=== PATIENT | female | born 1990 | race Native Hawaiian/Other Pacific Islander ===

== ENCOUNTER 2022-03-03 21:35 | Emergency (ER) | payer BC ==
[~2022-03-03] VITALS: Ht 162.6 cm; Wt 90.7 kg
[2022-03-03 21:45] VITALS: BP 155/88; TEMP 98.6
== END 2022-03-03 23:50 | disposition home or self-care (01) ==
LOC: ED 21:35
DX: Z34.80 Encounter for supervision of other normal pregnancy, unspecified trimester (principal)
CPT/HCPCS: 36415; 81002; 81025; 84702; 87210; 87590; 99283

== ENCOUNTER 2022-03-25 10:20 | Emergency (ER) | payer BC, OTHER ==
[~2022-03-25] VITALS: Ht 162.6 cm; Wt 90.7 kg
[2022-03-25 10:28] VITALS: TEMP 98.4
[2022-03-25 11:25] LABS: PLATELET COUNT 281 K/uL (152-353)
[2022-03-25 11:26] LABS: POTASSIUM 3.6 mmol/L (3.6-5.2)
[2022-03-25 11:48] VITALS: BP 111/73
== END 2022-03-25 11:48 | disposition home or self-care (01) ==
LOC: ED 10:20
PROVIDERS: Emergency Medicine Emergency Medical Services
DX: R07.89 Other chest pain (principal); O03.4 Incomplete spontaneous abortion without complication
CPT/HCPCS: 80048; 81000; 84484; 85027; 93005; 96360; 99284